=== PATIENT | female | born 1975 | race Caucasian/White ===

== ENCOUNTER 2017-06-08 21:49 | Inpatient (IN) | payer MEDICAID, SELFPAY | END 2017-06-10 10:35 | disposition home or self-care (01) | DRG 312 | PROVIDERS: Admitting Provider Internal Medicine Adolescent Medicine; Emergency Provider Emergency Medicine; Family Provider Emergency Medicine; Visit Provider Emergency Medicine | DX: F20.9 Schizophrenia, unspecified (principal); K82.9 Disease of gallbladder, unspecified; R10.11 Right upper quadrant pain; R55 Syncope and collapse | CPT/HCPCS: 36415; 74177; 78226; 80053; 81001; 82140; 82150; 83690; 83735; 84100; 84436; 84443; 84479; 85025; 86704; 86708; 86803; 87086; 87340; 93005; 96365; 96375; 97162; 99283; 99284; A9537; J2405; Q9967 ==

== ENCOUNTER → 2017-12-15 09:20 | Outpatient (CLI) | payer MEDICAID, SELFPAY ==
--- NOTE | 2017-12-15 09:22 | MM_ITS ---
MM Dig screening mamm BI w/CAD CAD Screening ORDERING PHYSICIAN : Bryn Macias MD PATIENT AGE: 41 years GENDER: Female COMPARISON: Bilateral digital mammogramsJan2016, July 2015, INDICATION:. -control pills. No new complaints. Noncontributory family history TECHNIQUE: Standard CC and MLO images were obtained. R2 CAD reviewed. FINDINGS: ] Moderately dense bilaterally with does decrease sensitivity mammography. Mild asymmetry overall breast patterns very similar to previous studies dating back to last year and 2016. No significant interval change.. With no prominent nor dominant mass or suspicious calcifications. No architectural distortion in either breast. Bilateral follow-up in one year the adequate. Self breast examination be encouraged in this dense breast with any palpable areas of arise low threshold for ultrasound be suggested to compliment the decrease sensitivity of mammography in breast of increased density . IMPRESSION: Stable mammogram Dense breast bilaterally decrease sensitivity mammography, but no new areas of significant concern Bilateral follow-up in one year recommended BI-RADS Category: 2 Benign Finding(s) RECOMMENDED FOLLOW-UP: 1YR - 1 YEAR FOLLOW-UP (A letter has been sent to the patient regarding results of the study.)
== END ==
PROVIDERS: Family Provider Emergency Medicine; PCP Emergency Medicine; Visit Provider Obstetrics & Gynecology
DX: Z12.31 Encounter for screening mammogram for malignant neoplasm of breast (principal)
CPT/HCPCS: 77067

== ENCOUNTER → 2019-01-11 09:51 | Outpatient (CLI) | payer MEDICAID, SELFPAY ==
--- NOTE | 2019-01-11 09:55 | MM_ITS ---
MM Dig screening mamm BI w/CAD CAD Screening COMPARISON: Digital mammograms with CAD 12/15/2017 and 07/24/2016 INDICATION: There is no personal or family history of breast cancer TECHNIQUE: Standard CC and MLO images were obtained. R2 CAD reviewed. FINDINGS: There is a diffusely dense and heterogenic parenchymal pattern somewhat lessening the sensitivity of mammography. The left breast is slightly larger than right and this was noted previously. There is no suspicious lesion and there are no suspicious microcalcifications. IMPRESSION: Diffusely dense parenchymal pattern with no suspicious lesion seen BI-RADS Category: 1 Negative RECOMMENDED FOLLOW-UP: 1YR - 1 YEAR FOLLOW-UP (A letter has been sent to the patient regarding results of the study.)
== END ==
PROVIDERS: PCP Emergency Medicine; Visit Provider Obstetrics & Gynecology
DX: Z12.31 Encounter for screening mammogram for malignant neoplasm of breast (principal)
CPT/HCPCS: 77067

== ENCOUNTER → 2023-06-11 13:35 | Outpatient (CLI) | payer MEDICAID, SELFPAY ==
--- NOTE | 2023-06-11 13:36 | MM_ITS ---
PROCEDURE INFORMATION: Exam: MG Bilateral Screening 3D Mammography Exam date and time: 06/11/2023 1:34 PM Age: 47 years old Clinical indication: Screening examination TECHNIQUE: Imaging protocol: Bilateral Screening tomosynthesis and 2D mammography including computer-aided detection (CAD) when performed. COMPARISON: 1. MG DIG MAMM-SCREEN SWAPNA 01/11/2019 10:01 AM 2. MG SCBI MM Dig screening mamm BI w/CAD 12/15/2017 9:33 AM FINDINGS: MAMMOGRAPHY: Breast composition: The breasts are heterogeneously dense, which may obscure small masses. Mass: None. Architectural distortion: None. Calcifications: Questionable clustered calcifications in the posterior third of the right approximate 12 o'clock axis. Asymmetric density: None. Skin thickening: None. Axillary adenopathy: None. IMPRESSION: Patient to be recalled for spot magnification views of the right breast in the CC, exaggerated lateral CC, and MLO projections for further evaluation of right breast calcifications. ASSESSMENT: BI-RADS Category 0: Incomplete- Need Additional Imaging Evaluation and/or Prior Mammograms for Comparison
== END ==
PROVIDERS: PCP Emergency Medicine; Visit Provider Emergency Medicine
DX: Z12.31 Encounter for screening mammogram for malignant neoplasm of breast (principal)
CPT/HCPCS: 77063; 77067

== ENCOUNTER 2023-09-18 10:19 | Emergency (ER) | payer MEDICAID, SELFPAY ==
[2023-09-18] VITALS (11 sets, daily range): BP systolic 124–142; BP diastolic 70–81; PULSE 67–88; RESP 12–18; TEMP 36.7–36.8; O2SAT 95–100; BMI 21.1; BMI 21.9
--- NOTE | 2023-09-18 | ECG_ITS ---
APPROVED REPORT Exam: Resting ECG HR:80 bpm ECG Measurements Heart Rate 80 AXES RI 224 P 60 QRSd 79 QRS 46 QT 415 T 27 QTc 451 Conclusion SINUS RHYTHM WITH FIRST DEGREE AV BLOCK NONSPECIFIC T-WAVE ABNORMALITY Electronically signed by : MARCI JARAMILLO, 09/19/2023 03:28:53
--- NOTE | 2023-09-18 10:22 | INFXCTL.NOTE ---
DR FARRELL AT BEDSIDE
--- NOTE | 2023-09-18 10:23 | CT_ITS ---
FINAL REPORT TECHNIQUE: Pre-and postcontrast images of the abdomen were performed by computed tomography. Extensive 3-D reconstruction images were performed. A CTA was performed. This study was performed with techniques to keep radiation doses as low as reasonably achievable (ALARA). Individualized dose reduction techniques using automated exposure control or adjustment of mA and/or kV according to the patient''s size were employed. CLINICAL HISTORY: cp to back, abd pain, syncope FINDINGS: ABDOMEN: The lung bases are clear. Precontrast images demonstrate no evidence of nephrolithiasis. No adrenal masses are identified. The liver, spleen and pancreas are unremarkable. There is mild, nonspecific gallbladder wall thickening. The appendix is normal. CTA: The abdominal aorta is proper caliber. The SMA, celiac axis, and RAFAEL are patent. There is no significant stenosis or calcification. The renal arteries are patent bilaterally. Internal and external iliac arteries are patent. IMPRESSION: No evidence of renal vascular hypertension or significant renal artery stenosis. Mild, nonspecific gallbladder wall thickening. Reviewed, Interpreted and Dictated by Juanpablo Rocha III, MD Transcribed by Amirah Fish Authenticated and [facility]
--- NOTE | 2023-09-18 10:23 | XR_ITS ---
FINAL REPORT CLINICAL HISTORY: cp to right shoulder FINDINGS: SINGLE-VIEW CHEST The heart size is normal. The mediastinum is normal. There are mild right base opacities, may represent atelectasis or pneumonia. There is no pneumothorax. IMPRESSION: Right base atelectasis versus pneumonia. Reviewed, Interpreted and Dictated by Juanpablo Rocha III, MD Transcribed by Gisele Guillen Authenticated and [facility]
--- NOTE | 2023-09-18 10:23 | CT_ITS ---
FINAL REPORT TECHNIQUE: Postcontrast axial images of the chest were performed in a CTA protocol. This study was performed with techniques to keep radiation doses as low as reasonably achievable, (ALARA). Individualized dose reduction technique using automated exposure control or adjustment of mA and/or kV according to the patient's size were employed. CLINICAL HISTORY: cp to back, abd pain, suncope FINDINGS: The heart is normal in size. No adenopathy is identified. No pleural or pericardial effusion is identified. The thoracic aorta is normal in caliber with no focal aneurysm or dissection identified. There is no filling defect to suggest pulmonary embolism. No lung infiltrate or mass is identified. There is mild atelectasis at the lung bases. IMPRESSION: No evidence for PE on this exam. Reviewed, Interpreted and Dictated by Juanpablo Rocha III, MD Transcribed by Amirah Fish Authenticated and . [facility]
--- NOTE | 2023-09-18 10:27 | ED_ITS ---
Discharge Plan Disposition Patient Disposition: Home, Self-Care Prescriptions Prescriptions: No Action acetaminophen [Tylenol Extra Strength] 500 mg tablet 500 mg PO Q4-6H PRN (Reason: pain) ondansetron 4 mg tablet,disintegrating 4 mg PO Q8H PRN (Reason: n/v) guaifenesin [Robafen] 100 mg/5 mL liquid 200 mg PO Q4H PRN (Reason: unknown) trazodone 100 mg tablet 100 mg PO QHS PRN (Reason: Sleep) buspirone 5 mg tablet 5 mg PO BID calcium carbonate-simethicone 500-20 mg tablet,chewable 2 tab PO BID citalopram 20 mg tablet 20 mg PO DAILY cranberry fruit concentrate [Azo Cranberry] 250 mg tablet,chewable 250 mg PO DAILY hydroxyzine pamoate 50 mg capsule 50 mg PO TID PRN (Reason: mood) metoprolol tartrate 25 mg tablet 25 mg PO BID multivitamin capsule 1 cap PO QAM omeprazole 40 mg capsule,delayed release(DR/EC) 40 mg PO DAILY quetiapine 200 mg tablet 200 mg PO QHS quetiapine 50 mg tablet 50 mg PO BID simvastatin 20 mg tablet 20 mg PO QPM norgestimate-ethinyl estradiol [Tri-Sprintec (28)] 0.18/0.215/0.25 mg-35 mcg (28) tablet See Rx Instructions .ROUTE .COMPLEX Qty: 84 0RF Dose Instruction: TAKE 1 TABLET BY MOUTH EVERY DAY Rx Instructions: TAKE 1 TABLET BY MOUTH EVERY DAY clonazepam 0.5 mg tablet 0.5 mg PO TID Qty: 90 5RF ondansetron HCl 4 MG tablet 4 mg PO TID 2 Days Qty: 6 0RF Referrals Follow up/Referrals: Juan Manuel Marrero APRN [Primary Care Provider] - See instructions Activity Restrictions/Add. Instructions Additional Instructions/Restrictions: No emergent medical condition identified today you may take [id number] Pepcid and/or Maalox as needed for your symptoms. Clinical Impressions Clinical Impression: Abdominal pain, RUQ Instructions Patient Instructions: DI for Acute Abdominal Pain Discharge ED Provider: Chacorta Jaramillo [facility] <Chacorta Jaramillo MD - Last Filed: 09/18/23 14:41> General Chief Complaint: Abdominal Pain Stated Complaint: syncope Time Seen by Provider: 09/18/23 10:23 History of Present Illness HPI narrative: This is a 47-year-old female with history of hypertension, hyperlipidemia, anxiety, depression, GERD presenting with multiple syncopal episodes. Patient states that she has been having abdominal pain on and off for the past 3 to 4 weeks. She states that she thinks is due to a GI bug, but denies vomiting or diarrhea. Not related to p.o. intake. Abdominal pain is not related to exertion, position either. It is mild to moderate, does not radiate, diffuse. She has no abdominal surgical history. She states that she also wakes up every morning with indigestion that goes to my right shoulder. But denies shortness of breath, diaphoresis, overt chest pain. Today, patient was experiencing severe abdominal pain and she had multiple syncopal episodes outside of [facility]. EMS was called by bystander and brought her to the emergency department. Related Data Home Medications Medication Instructions Recorded Confirmed acetaminophen 500 mg tablet 500 mg PO Q4-6H PRN pain 12/08/17 03/18/19 (Tylenol Extra Strength) buspirone 5 mg tablet 5 mg PO BID mood 12/08/17 03/18/19 calcium carbonate 500 2 tab PO BID stomach 12/08/17 03/18/19 mg-simethicone 20 mg chewable tablet citalopram 20 mg tablet 20 mg PO DAILY mood 12/08/17 03/18/19 cranberry fruit concentrate 250 mg 250 mg PO DAILY Supplement 12/08/17 03/18/19 chewable tablet (Azo Cranberry) guaifenesin 100 mg/5 mL oral 200 mg PO Q4H PRN unknown 12/08/17 03/18/19 liquid (Robafen) hydroxyzine pamoate 50 mg capsule 50 mg PO TID PRN mood 12/08/17 03/18/19 metoprolol tartrate 25 mg tablet 25 mg PO BID unknown 12/08/17 03/18/19 multivitamin 1 cap PO QAM Supplement 12/08/17 03/18/19 omeprazole 40 mg capsule,delayed 40 mg PO DAILY stomach 12/08/17 03/18/19 release ondansetron 4 mg disintegrating 4 mg PO Q8H PRN n/v 12/08/17 03/18/19 tablet quetiapine 200 mg tablet 200 mg PO QHS mood 12/08/17 03/18/19 quetiapine 50 mg tablet 50 mg PO BID mood 12/08/17 03/18/19 simvastatin 20 mg tablet 20 mg PO QPM Cholesterol 12/08/17 03/18/19 trazodone 100 mg tablet 100 mg PO QHS PRN Sleep 12/08/17 03/18/19 Previous Rx's Medication Instructions Recorded ondansetron HCl 4 mg tablet 4 mg PO TID nausea 2 days #6 tabs 03/18/19 norgestimate-ethinyl estradiol See Rx Instructions .Route 10/31/20 0.18 mg/0.215mg/0.25mg-35 .COMPLEX #84 tabs mcg(28)tablet (Tri-Sprintec (28)) clonazepam 0.5 mg tablet 0.5 mg PO TID mood #90 tabs 04/08/23 Allergies Allergy/AdvReac Type Severity Reaction Status Date / Time Penicillins [PENICILLINS] Allergy Mild I-RASH Verified 12/11/18 08:24 promethazine [From PHENERGAN] Allergy Unknown Verified 12/11/18 08:24 CHOCOLATE (FOOD) Allergy Mild HEADACHE Uncoded 12/11/18 08:24 PFSH <Chacorta Jaramillo MD - Last Filed: 09/18/23 14:41> [facility] Disclaimer: The information contained in this section may have been updated after the patient was seen, as this information can be updated by other users. Social History Smoking Status: Unknown if ever smoked alcohol intake: never substance use type: denies use current occupational status: disabled Travel in the last 8 weeks: None <Chacorta Jaramillo MD - Last Filed: 09/18/23 14:41> ROS Obtained: Yes All systems reviewed & no additional complaints except as documented Physical Exam <Chacorta Jaramillo MD - Last Filed: 09/18/23 14:41> General General appearance: alert and other (Pale, tired appearing) Neck Neck exam: Present trachea midline Chest Chest inspection: Present normal inspection and symmetric chest wall rise Respiratory Respiratory exam: Present normal lung sounds bilaterally; Absent respiratory distress, wheezes, stridor, accessory muscle use or prolonged expiratory phase Cardiovascular Cardiovascular exam: Present regular rate and normal rhythm Abdominal Exam Abdominal exam: Present soft and tenderness; Absent distention, guarding, rebound or rigidity Abdominal tenderness: Present diffuse and moderate Extremities Exam Extremities exam: Absent edema Neurological Exam Neurological exam: Present alert, oriented X3 and CN II-XII intact Skin Skin exam: Present warm, dry and pallor; Absent cyanosis or diaphoresis HEART Score <Chacorta Jaramillo MD - Last Filed: 09/18/23 14:41> HEART Score HEART Score assessment performed?: Yes History (anamnesis): Moderately suspicious ECG: Non-specific disturbance Age: 45-65 years Risk factors: 3 or more risk factors Troponin: </= normal limit HEART Score: 5 <Savanna Rowland MD - Last Filed: 09/18/23 17:07> HEART Score HEART Score: 5 Critical Care <Chacorta Jaramillo MD - Last Filed: 09/18/23 14:41> Critical Care Time Critical Care Time: No Medical Decision Making <Chacorta Jaramillo MD - Last Filed: 09/18/23 14:41> Medical Records Medical records reviewed: Yes I reviewed the patient's medical records. Charanjit Inquiry Pt receiving controlled substance: No Charanjit was queried for this patient: No Vital Signs Vital Signs: 09/18/23 10:20 09/18/23 11:00 09/18/23 11:30 Temperature 98.2 F Temperature Source Oral Pulse Rate 82 82 Pulse Rate [Right] 67 Respiratory Rate 16 18 18 Blood Pressure 130/72 138/74 Blood Pressure [Right Arm] 142/78 H Blood Pressure Mean 91 95 Blood Pressure Mean [Right Arm] 99 Blood Pressure Source [Right Arm] Automatic Cuff 02 Sat by Pulse Oximetry 98 100 100 Oxygen Delivery Method Room Air 09/18/23 12:00 09/18/23 13:00 09/18/23 13:30 Temperature Temperature Source Pulse Rate 82 82 80 Pulse Rate [Right] Respiratory Rate 18 18 12 Blood Pressure 138/78 142/79 H 140/81 Blood Pressure [Right Arm] Blood Pressure Mean 92 Blood Pressure Mean [Right Arm] Blood Pressure Source [Right Arm] 02 Sat by Pulse Oximetry 99 95 98 Oxygen Delivery Method Room Air Room Air 09/18/23 14:00 09/18/23 14:30 09/18/23 15:30 Temperature Temperature Source Pulse Rate 80 88 75 Pulse Rate [Right] Respiratory Rate 13 18 18 Blood Pressure 124/80 125/71 124/70 Blood Pressure [Right Arm] Blood Pressure Mean 91 88 Blood Pressure Mean [Right Arm] Blood Pressure Source [Right Arm] 02 Sat by Pulse Oximetry 100 98 96 Oxygen Delivery Method Room Air 09/18/23 16:00 Temperature Temperature Source Pulse Rate 82 Pulse Rate [Right] Respiratory Rate 18 Blood Pressure 130/78 Blood Pressure [Right Arm] Blood Pressure Mean 98 Blood Pressure Mean [Right Arm] Blood Pressure Source [Right Arm] 02 Sat by Pulse Oximetry 96 Oxygen Delivery Method Lab Data Labs: Lab Results 09/18/23 10:35: WBC 7.9, RBC 5.03, Hgb 12.2, Hct 39.7, MCV 78.9 L, MCH 24.3 L, M CHC 30.7 L, RDW 14.6, Plt Count 543 H, MPV 6.2 L, Neut % (Auto) 67.2, Lymph % (Auto) 25.3, [place] % (Auto) 5.6, Eos % (Auto) 1.0, Baso % (Auto) 0.9, Neut # (Auto) 5.3, Lymph # (Auto) 2.0, [place] # (Auto) 0.4, Eos # (Auto) 0.1, Baso # (Auto) 0.1, Sodium 142, Potassium 3.2 L, Chloride 105, Carbon Dioxide 27, Anion Gap 13.2, BUN 13, Creatinine 0.80, Estimated Creat Clear 86, Estimated GFR 77, Est GFR ( Amer) 93, Glucose 134 H, Calcium 8.7, Magnesium 2.0, Total Bilirubin 0.3, AST 42 H, ALT 33, Alkaline Phosphatase 84, Troponin I < 0.01, NT-Pro-B Natriuret Pep 26.2, Total Protein 7.3, Albumin 4.0, Globulin 3.3 H, Albumin/Globulin Ratio 1.2, Lipase 145, Serum HCG, Qual Negative 09/18/23 10:40: SARS-CoV-2 (PCR) Detected A, Influenza A Untype (PCR) Not detected, Influenza Type B (PCR) Not detected 09/18/23 13:30: Troponin I < 0.01 09/18/23 14:12: Urine Color Yellow, Urine Appearance Clear, Urine pH 7.5, Ur Specific Ava <= 1.005, Urine Protein Trace, Urine Glucose (UA) Negative, Urine Ketones Negative, Urine Blood 3+, Urine Nitrate Negative, Urine Bilirubin Negative, Urine Urobilinogen 0.2, Ur Leukocyte Esterase Trace, Urine RBC 20-50, Urine WBC 3-5, Ur Squamous Epith Cells 5-10, Urine Bacteria Trace 09/18/23 10:35 09/18/23 10:35 Response Orders (Tests/Meds): ED MEDICATIONS Generic Name Dose Route Start Last Admin Trade Name Freq PRN Reason Stop Dose Admin Sodium Chloride 10 ml 09/18/23 12:44 Sodium Chloride 0.9% 10ml Syr (Rad Only) IV 10/18/23 12:43 NEEDED PRN Maintain IV Site Discontinued Medications Generic Name Dose Route Start Last Admin Trade Name Freq PRN Reason Stop Dose Admin Acetaminophen 1,000 mg 09/18/23 10:32 09/18/23 10:52 Acetaminophen 1,000mg/100ml Vial IV 09/18/23 10:33 1,000 mg ONCE ONE Administration Aspirin 324 mg 09/18/23 10:23 09/18/23 10:52 Aspirin 81mg Chewable Tablet PO 09/18/23 10:24 324 mg ONCE ONE Administration Sodium Chloride 1,000 mls @ 999 mls/hr 09/18/23 10:23 09/18/23 10:52 Sod Chlor 0.9% 1000ml Bag IV 09/18/23 11:23 999 mls/hr .Q1H1M ONE Administration Iopamidol 100 ml 09/18/23 12:44 09/18/23 12:45 Iopamidol-370 (76%);100ml Bottle IV 09/18/23 12:45 100 ml ONCE ONE Administration Ketorolac Tromethamine 15 mg 09/18/23 10:32 09/18/23 10:52 Ketorolac 30mg/Ml Vial IV 09/18/23 10:33 15 mg ONCE ONE Administration Potassium Chloride 60 meq 09/18/23 12:26 09/18/23 12:50 Potassium Chloride 20meq Tab PO 09/18/23 12:27 60 meq ONCE ONE Administration Sodium Chloride 50 ml 09/18/23 12:44 09/18/23 12:44 0.9 % Sodium Chloride 50 Ml Vial IV 09/18/23 12:45 50 ml ONCE ONE Administration ORDERS Category Date Time Status CT angio abdomen pelvis Stat Cat Scan 09/18/23 10:[address] angio chest - dissection Stat Cat Scan 09/18/23 10:23 Completed US Right Upper Quad [US abdomen limited] Stat Exams 09/18/23 14:25 Taken XR chest portable Stat Exams 09/18/23 10:23 Completed Brain Natriuretic Peptide Stat Lab 09/18/23 10:35 Completed Complete Blood Count Auto Diff Stat Lab 09/18/23 10:35 Completed Comprehensive Metabolic Panel Stat Lab 09/18/23 10:35 Completed Lipase Stat Lab 09/18/23 10:35 Completed Magnesium Stat Lab 09/18/23 10:35 Completed Rapid PCR Covid and Flu A/B Stat Lab 09/18/23 10:40 Completed Serum [HCG Qualitative, Serum] Stat Lab 09/18/23 10:35 Completed Troponin I Q3H Lab 09/18/23 13:30 Completed Troponin I Q3H Lab 09/18/23 16:30 Ordered Troponin I Stat Lab 09/18/23 10:35 Completed Urinalysis and Microscopic Stat Lab 09/18/23 14:12 Completed MDM Narrative Medical Decision Narrative: This is a 47-year-old female with history of hypertension, hyperlipidemia, anxiety, depression, GERD presenting with multiple syncopal episodes. Patient states that she has been having abdominal pain on and off for the past 3 to 4 weeks. She states that she thinks is due to a GI bug, but denies vomiting or diarrhea. Not related to p.o. intake. Abdominal pain is not related to exertion, position either. It is mild to moderate, does not radiate, diffuse. She has no abdominal surgical history. She states that she also wakes up every morning with indigestion that goes to my right shoulder. But denies shortness of breath, diaphoresis, overt chest pain. Today, patient was experiencing severe abdominal pain and she had multiple syncopal episodes outside of her group living home, [facility]. EMS was called by bystander and brought her to the emergency department. It should be noted that patient does not know her medical history or comorbidities or medications she is on, which is complicating emergency care. History was obtained via conversation with patient and EMS. On arrival, patient hemodynamically stable, alert, oriented x4, appropriate, GCS 15, moving all extremities spontaneously, pupils equal and reactive to light. Full physical exam performed and significant for tired, pale appearing woman who is in no acute distress. Her abdomen is soft, nondistended, but diffusely and moderately tender. No evidence of peritonitis. No flank tenderness. Cardiopulmonary exam within normal limits. Differential includes microvascular coronary artery disease, CHF, ACS, PA, coronary artery dissection, pneumothorax, PE, dissection, pericarditis, myocarditis, pneumothorax, aortic aneurysm, pneumonia, bronchitis, PUD, gastritis, enteritis, gastroenteritis, pancreatitis, SBO, colitis, diverticulitis, nephrolithiasis, UTI, cholecystitis, appendicitis, hepatitis, aortic pathology, mesenteric ischemia among others. Patient was given Toradol and acetaminophen, aspirin, fluid bolus for symptomatic management and correction of underlying abnormalities. Workup independently interpreted and significant for no leukocytosis, nonactionable chemistry other than hypokalemia which was repleted. Kidney function normal. LFTs normal, delta troponin negative and BNP normal. Patient's lipase normal at 145. hCG negative. Chest x-ray without acute cardiopulmonary airspace disease. CTA of the chest abdomen pelvis to assess for aortic pathology was negative other than pericholecystic fluid. See radiology read for full review of final results. Independent interpretation of EKG shows sinus rhythm 80 beats a minute no ST changes concerning for ischemia. She does have T wave inversions in V2 through V4 as well as 3 and aVF without reciprocal change. Nonspecific. First-degree AV block with LA interval 224. QRS and QT intervals within normal limits. Patient placed on continuous cardiac monitoring and continuous pulse ox with initial blood pressure 124/80, heart rate 80, saturation 100% on room air. Heart score 5. On reevaluation, patient feeling much better, but given imaging findings of right upper quadrant inflammation, right upper quadrant ultrasound was ordered. Prior to this being performed and resulted, care ended up to oncoming physician. <Savanna Rowland MD - Last Filed: 09/18/23 17:07> Vital Signs Vital Signs: 09/18/23 10:20 09/18/23 11:00 09/18/23 11:30 Temperature 98.2 F Temperature Source Oral Pulse Rate 82 82 Pulse Rate [Right] 67 Respiratory Rate 16 18 18 Blood Pressure 130/72 138/74 Blood Pressure [Right Arm] 142/78 H Blood Pressure Mean 91 95 Blood Pressure Mean [Right Arm] 99 Blood Pressure Source [Right Arm] Automatic Cuff 02 Sat by Pulse Oximetry 98 100 100 Oxygen Delivery Method Room Air 09/18/23 12:00 09/18/23 13:00 09/18/23 13:30 Temperature Temperature Source Pulse Rate 82 82 80 Pulse Rate [Right] Respiratory Rate 18 18 12 Blood Pressure 138/78 142/79 H 140/81 Blood Pressure [Right Arm] Blood Pressure Mean 92 Blood Pressure Mean [Right Arm] Blood Pressure Source [Right Arm] 02 Sat by Pulse Oximetry 99 95 98 Oxygen Delivery Method Room Air Room Air 09/18/23 14:00 09/18/23 14:30 09/18/23 15:30 Temperature Temperature Source Pulse Rate 80 88 75 Pulse Rate [Right] Respiratory Rate 13 18 18 Blood Pressure 124/80 125/71 124/70 Blood Pressure [Right Arm] Blood Pressure Mean 91 88 Blood Pressure Mean [Right Arm] Blood Pressure Source [Right Arm] 02 Sat by Pulse Oximetry 100 98 96 Oxygen Delivery Method Room Air 09/18/23 16:00 Temperature Temperature Source Pulse Rate 82 Pulse Rate [Right] Respiratory Rate 18 Blood Pressure 130/78 Blood Pressure [Right Arm] Blood Pressure Mean 98 Blood Pressure Mean [Right Arm] Blood Pressure Source [Right Arm] 02 Sat by Pulse Oximetry 96 Oxygen Delivery Method Lab Data Lab results reviewed: Yes I reviewed the patient's lab results. Labs: Lab Results 09/18/23 10:35: WBC 7.9, RBC 5.03, Hgb 12.2, Hct 39.7, MCV 78.9 L, MCH 24.3 L, M CHC 30.7 L, RDW 14.6, Plt Count 543 H, MPV 6.2 L, Neut % (Auto) 67.2, Lymph % (Auto) 25.3, [place] % (Auto) 5.6, Eos % (Auto) 1.0, Baso % (Auto) 0.9, Neut # (Auto) 5.3, Lymph # (Auto) 2.0, [place] # (Auto) 0.4, Eos # (Auto) 0.1, Baso # (Auto) 0.1, Sodium 142, Potassium 3.2 L, Chloride 105, Carbon Dioxide 27, Anion Gap 13.2, BUN 13, Creatinine 0.80, Estimated Creat Clear 86, Estimated GFR 77, Est GFR ( Amer) 93, Glucose 134 H, Calcium 8.7, Magnesium 2.0, Total Bilirubin 0.3, AST 42 H, ALT 33, Alkaline Phosphatase 84, Troponin I < 0.01, NT-Pro-B Natriuret Pep 26.2, Total Protein 7.3, Albumin 4.0, Globulin 3.3 H, Albumin/Globulin Ratio 1.2, Lipase 145, Serum HCG, Qual Negative 09/18/23 10:40: SARS-CoV-2 (PCR) Detected A, Influenza A Untype (PCR) Not detected, Influenza Type B (PCR) Not detected 09/18/23 13:30: Troponin I < 0.01 09/18/23 14:12: Urine Color Yellow, Urine Appearance Clear, Urine pH 7.5, Ur Specific Ava <= 1.005, Urine Protein Trace, Urine Glucose (UA) Negative, Urine Ketones Negative, Urine Blood 3+, Urine Nitrate Negative, Urine Bilirubin Negative, Urine Urobilinogen 0.2, Ur Leukocyte Esterase Trace, Urine RBC 20-50, Urine WBC 3-5, Ur Squamous Epith Cells 5-10, Urine Bacteria Trace Response Orders (Tests/Meds): ED MEDICATIONS Generic Name Dose Route Start Last Admin Trade Name Freq PRN Reason Stop Dose Admin Sodium Chloride 10 ml 09/18/23 12:44 Sodium Chloride 0.9% 10ml Syr (Rad Only) IV 10/18/23 12:43 NEEDED PRN Maintain IV Site Discontinued Medications Generic Name Dose Route Start Last Admin Trade Name Freq PRN Reason Stop Dose Admin Acetaminophen 1,000 mg 09/18/23 10:32 09/18/23 10:52 Acetaminophen 1,000mg/100ml Vial IV 09/18/23 10:33 1,000 mg ONCE ONE Administration Aspirin 324 mg 09/18/23 10:23 09/18/23 10:52 Aspirin 81mg Chewable Tablet PO 09/18/23 10:24 324 mg ONCE ONE Administration Sodium Chloride 1,000 mls @ 999 mls/hr 09/18/23 10:23 09/18/23 10:52 Sod Chlor 0.9% 1000ml Bag IV 09/18/23 11:23 999 mls/hr .Q1H1M ONE Administration Iopamidol 100 ml 09/18/23 12:44 09/18/23 12:45 Iopamidol-370 (76%);100ml Bottle IV 09/18/23 12:45 100 ml ONCE ONE Administration Ketorolac Tromethamine 15 mg 09/18/23 10:32 09/18/23 10:52 Ketorolac 30mg/Ml Vial IV 09/18/23 10:33 15 mg ONCE ONE Administration Potassium Chloride 60 meq 09/18/23 12:26 09/18/23 12:50 Potassium Chloride 20meq Tab PO 09/18/23 12:27 60 meq ONCE ONE Administration Sodium Chloride 50 ml 09/18/23 12:44 09/18/23 12:44 0.9 % Sodium Chloride 50 Ml Vial IV 09/18/23 12:45 50 ml ONCE ONE Administration ORDERS Category Date Time Status CT angio abdomen pelvis Stat Cat Scan 09/18/23 10:[address] angio chest - dissection Stat Cat Scan 09/18/23 10:23 Completed US Right Upper Quad [US abdomen limited] Stat Exams 09/18/23 14:25 Taken XR chest portable Stat Exams 09/18/23 10:23 Completed Brain Natriuretic Peptide Stat Lab 09/18/23 10:35 Completed Complete Blood Count Auto Diff Stat Lab 09/18/23 10:35 Completed Comprehensive Metabolic Panel Stat Lab 09/18/23 10:35 Completed Lipase Stat Lab 09/18/23 10:35 Completed Magnesium Stat Lab 09/18/23 10:35 Completed Rapid PCR Covid and Flu A/B Stat Lab 09/18/23 10:40 Completed Serum [HCG Qualitative, Serum] Stat Lab 09/18/23 10:35 Completed Troponin I Q3H Lab 09/18/23 13:30 Completed Troponin I Q3H Lab 09/18/23 16:30 Ordered Troponin I Stat Lab 09/18/23 10:35 Completed Urinalysis and Microscopic Stat Lab 09/18/23 14:12 Completed MDM Narrative Medical Decision Narrative: This is a 47-year-old female with history of hypertension, hyperlipidemia, anxiety, depression, GERD presenting with multiple syncopal episodes. Patient states that she has been having abdominal pain on and off for the past 3 to 4 weeks. She states that she thinks is due to a GI bug, but denies vomiting or diarrhea. Not related to p.o. intake. Abdominal pain is not related to exertion, position either. It is mild to moderate, does not radiate, diffuse. She has no abdominal surgical history. She states that she also wakes up every morning with indigestion that goes to my right shoulder. But denies shortness of breath, diaphoresis, overt chest pain. Today, patient was experiencing severe abdominal pain and she had multiple syncopal episodes outside of her group living home, [facility]. EMS was called by bystander and brought her to the emergency department. It should be noted that patient does not know her medical history or comorbidities or medications she is on, which is complicating emergency care. History was obtained via conversation with patient and EMS. On arrival, patient hemodynamically stable, alert, oriented x4, appropriate, GCS 15, moving all extremities spontaneously, pupils equal and reactive to light. Full physical exam performed and significant for tired, pale appearing woman who is in no acute distress. Her abdomen is soft, nondistended, but diffusely and moderately tender. No evidence of peritonitis. No flank tenderness. Cardiopulmonary exam within normal limits. Differential includes microvascular coronary artery disease, CHF, ACS, PA, coronary artery dissection, pneumothorax, PE, dissection, pericarditis, myocarditis, pneumothorax, aortic aneurysm, pneumonia, bronchitis, PUD, gastritis, enteritis, gastroenteritis, pancreatitis, SBO, colitis, diverticulitis, nephrolithiasis, UTI, cholecystitis, appendicitis, hepatitis, aortic pathology, mesenteric ischemia among others. Patient was given Toradol and acetaminophen, aspirin, fluid bolus for symptomatic management and correction of underlying abnormalities. Workup independently interpreted and significant for no leukocytosis, nonactionable chemistry other than hypokalemia which was repleted. Kidney function normal. LFTs normal, delta troponin negative and BNP normal. Patient's lipase normal at 145. hCG negative. Chest x-ray without acute cardiopulmonary airspace disease. CTA of the chest abdomen pelvis to assess for aortic pathology was negative other than pericholecystic fluid. See radiology read for full review of final results. Independent interpretation of EKG shows sinus rhythm 80 beats a minute no ST changes concerning for ischemia. She does have T wave inversions in V2 through V4 as well as 3 and aVF without reciprocal change. Nonspecific. First-degree AV block with LA interval 224. QRS and QT intervals within normal limits. Patient placed on continuous cardiac monitoring and continuous pulse ox with initial blood pressure 124/80, heart rate 80, saturation 100% on room air. Heart score 5. On reevaluation, patient feeling much better, but given imaging findings of right upper quadrant inflammation, right upper quadrant ultrasound was ordered. Prior to this being performed and resulted, care ended up to oncoming physician. Reassessment 5:06 PM patient was awaiting right upper quadrant ultrasound this is Dr. Rowland took over care from Dr. Clint. Right upper quadrant ultrasound was performed which was unremarkable. No emergent medical condition identified. Patient's been given advised to take Pepcid and/or Maalox [id number] and she was discharged in stable condition
[2023-09-18] MEDS: ASPIRIN 81MG CHEWABLE TABLET 324 MG PO (10:52)
[2023-09-18] MEDS: KETOROLAC 30MG/ML VIAL 15 MG IV (10:52)
[2023-09-18] MEDS: ACETAMINOPHEN 1,000MG/100ML VIAL 1000 MG IV (10:52)
[2023-09-18] MEDS: 0.9 % SODIUM CHLORIDE 1000ML 1,000 ML 999 ML IV (10:52)
[2023-09-18 10:59] LABS: Basophils # 0.1 K/mm3 (0-0.2); Basophils % 0.9 % (0.1-2.0); Eosinophils # 0.1 K/mm3 (0.0-0.4); Hematocrit 39.7 % (37.0-47.0); Hemoglobin 12.2 g/dL (12.2-16.2); Lymphocytes % 25.3 % (10-50); Mean Corpuscular HGB Conc 30.7 g/dL (31.8-35.4); Mean Corpuscular Hemoglobin 24.3 pg (27.0-31.2); Mean Corpuscular Volume 78.9 fl (81-99); Mean Platelet Volume 6.2 fl (7.4-10.4); Monocytes # 0.4 K/mm3 (0.1-1.0); Monocytes % 5.6 % (1.7-9.3); Neutrophils # 5.3 K/mm3 (1.8-7.8); Neutrophils % 67.2 % (37.0-80.0); Platelet Count 543 K/mm3 (142-424); Red Blood Count 5.03 M/mm3 (4.20-5.40); Red Cell Distribution Width 14.6 % (11.5-17.5); White Blood Count 7.9 K/mm3 (4.8-10.8)
--- NOTE | 2023-09-18 11:10 | PC.NURSE ---
Pt advised she had her phone prior to falling and EMS picking her up. Upon arrival to ER pt did not have her phone in her belongings. All pt belongings placed in bag.
[2023-09-18 11:21] LABS: Alanine Aminotransferase 33 U/L (12-78); Albumin/Globulin Ratio 1.2 (1.1-1.8); Alkaline Phosphatase 84 U/L (38-126); Anion Gap 13.2 mEq/L (5-15); Aspartate Amino Transferase 42 U/L (14-36); Bilirubin,Total 0.3 mg/dl (0.2-1.3); Blood Urea Nitrogen 13 mg/dl (7-17); Calcium 8.7 mg/dl (8.4-10.2); Carbon Dioxide 27 mmol/L (22.0-30.0); Chloride 105 mmol/L (98-107); Creatinine Clearance Estimated 86 mL/min (50-200); Estimated Glomerular Filt Rate 77 ml/min (>60); GFR (African American) 93 ML/MIN (>60); Globulin 3.3 g/dL (1.3-3.2); Glucose 134 mg/dl (74-100); Lipase 145 U/L (23-300); Potassium 3.2 mmoL/L (3.5-5.1); Sodium 142 mmol/L (136-145); Total Protein,Serum 7.3 g/dl (6.3-8.2)
[2023-09-18 11:33] LABS: NT Pro Brain Natriuretic Pep. 26.2 pg/mL (0-125)
[2023-09-18 11:35] LABS: Troponin I < 0.01 ng/ml (0.00-0.034)
--- NOTE | 2023-09-18 12:16 | HMH.ITSTN ---
Addendum entered by Alessandra Snell, [employer] Machine Operator 09/18/23 12:17: lab stating results will be back in few minutes Original Note: called and spoke with lab regarding preg test. Results are not back yet. Getting ETA
[2023-09-18 12:22] LABS: HCG Qualitative, Serum Negative (Negative)
[2023-09-18] MEDS: 0.9 % SODIUM CHLORIDE 50 ML VIAL IV (12:44)
[2023-09-18] MEDS: IOPAMIDOL-370 (76%);100ML BOTTLE 100 ML IV (12:45)
[2023-09-18] MEDS: POTASSIUM CHLORIDE 20MEQ TAB 60 MEQ PO (12:50)
[2023-09-18 13:47] LABS: Influenza A, PCR Not Detected (NotDetected); Influenza B, PCR Not Detected (NotDetected)
[2023-09-18 14:00] LABS: Troponin I < 0.01 ng/ml (0.00-0.034)
--- NOTE | 2023-09-18 14:16 | PC.NURSE ---
Pt ambulatory to bathroom and back to bed. No other needs voiced at this time. Call light within reach
[2023-09-18 14:20] LABS: Microscopic, Urine URINE MICROSCOPIC (MICROSCOPIC)
[2023-09-18 14:24] LABS: Appearance,Urine CLEAR (Clear); Bilirubin,Urine Negative (Negative); Blood, Urine 3+ (Negative); Color,Urine YELLOW (Yellow); Glucose,Urine (UA) Negative (Negative); Ketones,Urine Negative (Negative); Leukocyte Esterase,Urine TRACE (Negative); Nitrate,Urine Negative (Negative); PH,Urine 7.5 (5.0-8.5); Protein,Urine TRACE (Negative); Specific Gravity, Urine <= 1.005 (1.005-1.030); Urobilinogen,Urine 0.2 EU/dl (0.2)
--- NOTE | 2023-09-18 14:25 | US_ITS ---
FINAL REPORT CLINICAL HISTORY: cocnern for gilberto COMPARISON: CT abdomen pelvis earlier same day FINDINGS: Sonographic images of the right upper quadrant were obtained. The pancreas is partially obscured.The liver has an unremarkable appearance.The gallbladder appears normal without evidence of gallstones.There is no evidence of biliary ductal dilatation.The common duct measures 3 mm. Limited images of the right kidney are unremarkable. IMPRESSION: Unremarkable right upper quadrant ultrasound. Reviewed, Interpreted and Dictated by Juanpablo Rocha III, MD Transcribed by Fatou Diez Authenticated and [facility]
[2023-09-18 14:39] LABS: Coronavirus 19, PCR Detected (NotDetected)
[2023-09-18 14:58] LABS: Bacteria,Urine Trace /lpf; RBC,Urine 20-50 #/hpf (0-3)
--- NOTE | 2023-09-18 17:12 | PC.NURSE ---
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
--- NOTE | 2023-09-18 17:13 | PC.NURSE ---
PT BEING D/C WAITING ON [facility] TO GET HERE FOR TRANSPORT
--- NOTE | 2023-09-18 17:24 | PC.NURSE ---
Called [facility] for [facility] pick[facility] and they advised they would send someone up
== END 2023-09-18 17:40 | disposition home or self-care (01) ==
PROVIDERS: Emergency Provider Emergency Medicine; PCP Nurse Practitioner Acute Care
DX: R10.11 Right upper quadrant pain (principal); R55 Syncope and collapse; I10 Essential (primary) hypertension; E78.5 Hyperlipidemia, unspecified; K21.9 Gastro-esophageal reflux disease without esophagitis
CPT/HCPCS: 71045; 71275; 74174; 76705; 80053; 81001; 83690; 83735; 83880; 84484; 84703; 85025; 87636; 93005; 96361; 96374; 96375; 99285; J0131; Q9967